=== PATIENT | female | born 1975 | race Caucasian/White ===

== ENCOUNTER 2016-09-19 20:48 | Emergency (ER) | payer OTHER, BC ==
[2016-09-19] MEDS ORDERED: ONDANSETRON 4 MG TAB.RAPDIS PO ONE (21:52)
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
[2016-09-20] MEDS ORDERED: HYDROCODONE/ACETAMINOPHEN 5-325 MG TABLET PO ONE (00:36)
[2016-09-20] MEDS ORDERED: CYCLOBENZAPRINE HCL 10 MG TABLET PO ONE (00:36)
[2016-09-20 01:26] VITALS: BP 127/80
[2016-09-20] MEDS ORDERED: HYDROCODONE/ACETAMINOPHEN 5-325 MG 6 TAB/DSPK PO PRN (02:28)
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
== END 2016-09-20 02:35 | disposition home or self-care (01) ==
LOC: ER 20:48
DX: R51 Headache (principal); M54.2 Cervicalgia; V49.40XA Driver injured in collision with unspecified motor vehicles in traffic accident, initial encounter; Z87.891 Personal history of nicotine dependence; M47.9 Spondylosis, unspecified
CPT/HCPCS: 99284; 72050; 72100; 72070; S0119